=== PATIENT | female | born 1995 | race Caucasian/White ===

== ENCOUNTER 2018-02-21 12:59 | Emergency (ER) | payer BC ==
[2018-02-21] MEDS ORDERED: LORazepam 2 MG/ML INJ IVP ONE (13:24)
[2018-02-21] MEDS ORDERED: KETOROLAC 15 MG/1 ML SDV IVP ONE (13:24)
[2018-02-21 13:26] LABS: PLATELET COUNT 264 10^3/uL (150-400)
--- NOTE | 2018-02-21 13:27 | EDPHY ---
H & P Stated Complaint: lower abdo pain, painful when voiding recnet 'stuck' tampon - Personal History LMP (Females 10-55): 1-7 Days Ago Current Tetanus Diphtheria and Acellular Pertussis (TDAP): Yes - Medical/Surgical History Hx Asthma: No Hx Chronic Respiratory Disease: No Hx Diabetes: No Hx Cardiac Disease: No Hx Renal Disease: No Hx Cirrhosis: No Hx Alcoholism: No Hx HIV/AIDS: No Hx Splenectomy or Spleen Trauma: No Other PMH: Denies - Social History Smoking Status: Never smoked Time Seen by Provider: 02/21/18 13:20 HPI/ROS: CHIEF COMPLAINT: Lower abdominal pain, dysuria HISTORY OF PRESENT ILLNESS: 22-year-old immunocompetent female arrives via private vehicle complaining of dysuria, suprapubic and lower abdominal pain which started this morning with associated dysuria, feeling urinary retention l. Pain described as significant enough that she was bent over earlier and is currently in tears. She is at the tail end of her menstrual period. She describes having a tampon in for 24 hr removed it this morning. It was in no longer than 24 hr however. No unusual vaginal discharge. No foul-smelling vaginal discharge. No back or flank pain. No fever or chills. No nausea or vomiting. REVIEW OF SYSTEMS: A ten point review of systems was performed and is negative with the exception of the items mentioned in the HPI PAST MEDICAL & SURGICAL HISTORY: No pertinent medical or surgical history SOCIAL HISTORY: Student PHYSICAL EXAM (Prior to examination, patient consented to physical exam, hands were washed and my usual and customary physical exam procedures followed) 1) GENERAL: Well-developed, well-nourished, alert and oriented. Appears uncomfortable, crying, hyperventilating 2) HEAD: Normocephalic, atraumatic 3) HEENT: Pupils equal, round, reactive to light bilaterally. Sclera anicteric. [Nasopharynx, oropharynx, clear, no lesions. Moist mucous membranes 4) NECK: Full range of motion, no meningeal signs. 5) LUNGS: Clear auscultation bilaterally, no wheezes, no rhonchi, no retractions. 6) HEART: Regular rate and rhythm, no murmur, no heave, no gallop. 7) ABDOMEN: Tender to palpation suprapubic region, negative McBurney's, negative Hendrix's, negative Rovsing's, negative peritoneal sign], 8) MUSCULOSKELETAL: Moving all extremities, no focal areas of tenderness, no obvious trauma. No peripheral edema or discoloration. 9) BACK: No CVA tenderness, no midline vertebral tenderness, no fluctuance, no step-off, no obvious trauma, no visual or palpable abnormality. 10) SKIN: No rash, no petechiae. 11) Psychiatric: Patient is oriented X 3, there is no agitation. DIFFERENTIAL DIAGNOSIS: My differential diagnosis includes, but is not limited to, acute appendicitis, acute cholecystitis, bowel obstruction, acute pancreatitis, ovarian torsion, ectopic , gastritis and urinary tract infection. The patient understands that this diagnosis is provisional and can never be 100% accurate. This is a partial list of diagnoses considered. These considerations are based on history, physical exam, past history and reassessment. (Emanuel Chopra) Constitutional: Initial Vital Signs Temperature (C) 36.7 C 02/21/18 13:00 Heart Rate 83 02/21/18 13:00 Respiratory Rate 18 02/21/18 13:00 Blood Pressure 107/71 02/21/18 13:00 O2 Sat (%) 96 02/21/18 13:00 O2 Delivery Mode Room Air Allergies/Adverse Reactions: No Known Allergies Allergy (Unverified 02/21/18 13:05) Home Medications: Medication Instructions Recorded Cephalexin [Keflex] 500 mg PO TID 7 Days cap 02/21/18 Phenazopyridine HCl [Pyridium] 200 mg PO PC #10 tab 02/21/18 Xanax 02/21/18 Medical Decision Making - Diagnostics Imaging Results: Images reviewed myself (Emanuel Chopra) ED Course/Re-evaluation: 1:26 p.m.: Patient is complaining of lower abdominal pain. We will obtain urinalysis, laboratory studies, pelvic ultrasound to evaluate ovarian flow. Bladder scan at this time is negative. Will administer IV hydration. 3:30 p.m.: Re-evaluation, she appears comfortable, no longer tearful, on her phone, smiling. Re-examined her abdomen which is soft no guarding or rebound. Awaiting urinalysis results. 3:57 p.m.: Urinalysis resulted positive for pyuria. Urine will be cultured. Suspect uncomplicated urinary tract infection. Will be started on Pyridium, Keflex. Usual customary discharge precautions and instructions provided. She feels comfortable being discharged. (Emanuel Chopra) - Data Points Laboratory Results: Laboratory Results 02/21/18 13:20 02/21/18 13:20 Microbiology Results: MICROBIOLOGY 02/21/18 15:56 Urine,Clean Catch Urine Culture - Final Three Charlotte Types Gram Neg Gomez Nonlactose Ferm. Medications Given: Discontinued Medications Cephalexin HCl (Keflex) 500 mg PO EDNOW ONE PRN Reason: Protocol Stop: 02/21/18 16:01 Last Admin: 02/21/18 16:08 Dose: 500 mg Sodium Chloride (Ns) 1,000 mls @ 0 mls/hr IV ONCE ONE PRN Reason: Wide Open Stop: 02/21/18 13:33 Last Admin: 02/21/18 13:33 Dose: 1,000 mls Sodium Chloride (Ns) 1,000 mls @ 0 mls/hr IV ONCE ONE PRN Reason: Wide Open Stop: 02/21/18 14:31 Last Admin: 02/21/18 14:35 Dose: 1,000 mls Ketorolac Tromethamine (Toradol) 15 mg IVP EDNOW ONE Stop: 02/21/18 13:25 Last Admin: 02/21/18 13:30 Dose: 15 mg Lorazepam (Ativan Injection) 1 mg IVP EDNOW ONE Stop: 02/21/18 13:25 Last Admin: 02/21/18 13:30 Dose: 1 mg Phenazopyridine HCl (Pyridium) 200 mg PO EDNOW ONE Stop: 02/21/18 15:56 Last Admin: 02/21/18 16:08 Dose: 200 mg Departure - Departure Disposition: Home, Routine, Self-Care Clinical Impression: Urinary tract infection Condition: Good Instructions: Urinary Tract Infection in Women (ED) Additional Instructions: Seek immediate medical attention if you develop new or worsening symptoms, if you develop fevers, chills, inability to tolerate oral intake or any other symptoms that concerns you. Referrals: [facility] [Cl[facility]] - As per Instructions Stand Alone Forms: School Excuse Prescriptions: Cephalexin [Keflex] 500 mg PO TID 7 Days cap Phenazopyridine HCl [Pyridium] 200 mg PO PC #10 tab
[2018-02-21] MEDS ORDERED: NS 1,000 ML IV ONE ×2 (13:32→14:30)
[2018-02-21] MEDS ORDERED: PHENAZOPYRIDINE HCL 200 MG TAB PO ONE (15:55)
[2018-02-21] MEDS ORDERED: CEPHALEXIN 500 MG CAP PO ONE (16:00)
[2018-02-21 16:13] VITALS: BP 111/68
== END 2018-02-21 16:13 | disposition home or self-care (01) ==
LOC: EDSEX 12:59
DX: N39.0 Urinary tract infection, site not specified (principal); B96.89 Other specified bacterial agents as the cause of diseases classified elsewhere
CPT/HCPCS: 82947-QW; 96374; J1885; J2060